=== PATIENT | male | born 1980 | race African-American/Black ===

== ENCOUNTER 2022-03-22 23:44 | Inpatient (IN) | payer SELFPAY ==
[2022-03-23] MEDS ORDERED: Acetaminophen 650 MG Suppository PR PRN (02:42)
[2022-03-23] MEDS ORDERED: Ondansetron ODT 4 MG TAB PO PRN (02:42)
[2022-03-23] MEDS ORDERED: Ondansetron PF 4 MG/2 ML Vial IVP PRN (02:42)
[2022-03-23] MEDS: Acetaminophen 325 MG TAB PO PRN ×2 (03:40→22:33)
[2022-03-23] MEDS: Sodium Chloride 0.9% 1,000 ML IV SCH ×2 (03:43→12:46)
[2022-03-23 03:59] VITALS: BMI 58.0
[2022-03-23 04:29] LABS: Hemoglobin A1c 5.1 % (4.0-6.0)
[2022-03-23 04:52] LABS: Anion Gap 12 mmol/L (10-20); BUN (Urea Nitrogen) 17 mg/dL (8.9-20.6); Calc. Creatinine Clearance 208 mL/min (70-130); Calcium 9.4 mg/dL (7.8-10.44); Carbon Dioxide 25 mmol/L (22-29); Chloride 102 mmol/L (98-107); Estimated GFR 81; Glucose 116 mg/dL (70-105); Iron 59 ug/dL (65-175); Iron Binding Capacity, Total 276 mcg/dL (261-462); Potassium 3.5 mmol/L (3.5-5.1); Sodium 135 mmol/L (136-145)
[2022-03-23 04:54] LABS: Iron 60 ug/dL (65-175); Iron Binding Capacity, Total 280 mcg/dL (261-462)
[2022-03-23 05:22] LABS: HIV (1/2) Antibody/Antigen Non-Reactive (NonReactive); HIV 1/2 INDEX 0.26 S/CO (<1.00); Hep C IgG Ab Non-Reactive (NonReactive); Hep C Index 0.08 S/CO (0-0.79)
[2022-03-23 05:29] LABS: #Eosinphils 0.2 thou/uL (0.0-0.7); #Lymphocytes 2.5 thou/uL (1.20-3.40); #Monocytes 1.6 thou/uL (0.11-0.59); #Neutrophils 7.1 thou/uL (1.40-6.50); %Basophils 0.3 % (0.0-1.0); %Eosinophils 1.8 % (0.0-10.0); %Lymphocytes 21.6 % (21.0-51.0); %Neutrophils 62.3 % (42.0-75.0); Large Platelets MODERATE; MDiff Complete? YES; Mean Corpuscular HGB CONC 31.9 g/dL (32.0-36.0); Mean Corpuscular Hemoglobin 23.6 pg (27.0-31.0); Mean Platelet Volume 16.8 fL (7.4-10.4); Platelet Count 17 thou/uL (130-400); Platelet Morphology Comment Appears Decreased; RBC Distribution Width 13.3 % (11.5-14.5); RBC Morphology Normal; Red Blood Cell (RBC) Count 5.09 mill/uL (4.70-6.10); White Blood Cell (WBC) Count 11.4 thou/uL (4.8-10.8)
[2022-03-23 05:48] LABS: Ferritin 2032.93 ng/mL (22-322)
[2022-03-23 07:50] LABS: Bacteria/HPF None Seen HPF (None Seen); Bilirubin Negative (Negative); Blood, Urine Negative (Negative); Clarity Clear (Clear); Glucose, Urine (Dipstick) Normal (Negative); Ketone, Urine Negative (Negative); Leukocyte Negative Leu/uL (Negative); Nitrite Negative (Negative); Protein, Urine (Dipstick) Negative (Neg-Trace); RBC/HPF 0-3 HPF (0-3); Specific Gravity, Urine 1.023 (1.002-1.036); Squamous Epithelial 0-3 HPF (0-3); Urobilinogen 3 mg/dL (Less than 2); WBC/HPF 0-3 HPF (0-3); pH, Urine 5.5 (5.0-9.0)
[2022-03-23] MEDS ORDERED: Iopamidol-370 76% 500 ML 1 ML ONE (09:06)
[2022-03-23] MEDS ORDERED: Lisinopril/Hydrochlorothiazide 20/25 mg Tablet PO SCH (11:15)
[2022-03-23] MEDS ORDERED: Dexamethasone 4 MG TAB PO SCH (18:00)
[2022-03-24 06:06] LABS: Hemoglobin 12.7 g/dL (14.0-18.0); Mean Corpuscular HGB CONC 30.7 g/dL (32.0-36.0); Mean Corpuscular Hemoglobin 23.2 pg (27.0-31.0); Mean Corpuscular Volume 75.6 fL (78.0-98.0); Mean Platelet Volume 16.2 fL (7.4-10.4); Platelet Count 25 thou/uL (130-400); RBC Distribution Width 13.7 % (11.5-14.5); Red Blood Cell (RBC) Count 5.48 mill/uL (4.70-6.10); White Blood Cell (WBC) Count 11.5 thou/uL (4.8-10.8)
[2022-03-24] MEDS ORDERED: Ferrous Sulfate 325 MG TAB PO SCH (08:00)
[2022-03-24 08:16] VITALS: BP 116/71; TEMP 97
[2022-03-24] MEDS ORDERED: Lisinopril/Hydrochlorothiazide 20/25 mg Tablet PO SCH (09:00)
== END 2022-03-24 14:17 | disposition home or self-care (01) | DRG 813 ==
LOC: T4-B 03-23 00:41 → OBSVTOIN 03-23 06:12
PROVIDERS: ADMIT Student in an Organized Health Care Education/Training Program; ATTEND Internal Medicine
DX: D69.3 Immune thrombocytopenic purpura (principal); Z68.43 Body mass index [BMI] 50.0-59.9, adult; K21.9 Gastro-esophageal reflux disease without esophagitis; I10 Essential (primary) hypertension; M54.2 Cervicalgia; D50.9 Iron deficiency anemia, unspecified; D72.829 Elevated white blood cell count, unspecified; E66.01 Morbid (severe) obesity due to excess calories; Z20.822 Contact with and (suspected) exposure to COVID-19; G47.33 Obstructive sleep apnea (adult) (pediatric)
CPT/HCPCS: 36415; 70491; 71045; 80048; 81001; 82728; 83036; 83540; 83550; 85025; 85027; 86803; 87389; G0378; J7050; J8540; Q9967; U0003; U0005

== ENCOUNTER 2022-08-10 10:05 | Outpatient (CLI) | payer OTHER, BC | END 2022-08-10 10:06 | disposition home or self-care (01) | LOC: ULT 10:05 | PROVIDERS: ATTEND Internal Medicine | DX: K74.60 Unspecified cirrhosis of liver (principal); R16.1 Splenomegaly, not elsewhere classified; D64.9 Anemia, unspecified; R16.0 Hepatomegaly, not elsewhere classified; K76.0 Fatty (change of) liver, not elsewhere classified | CPT/HCPCS: 76700 ==